=== PATIENT | female | born 1975 | race Caucasian/White ===

== ENCOUNTER 2018-05-06 07:21 | Emergency (ER) | payer SELFPAY ==
[2018-05-06] MEDS ORDERED: Ketorolac Tromethamine 30 MG/ML VIAL ONE (07:45)
[2018-05-06] MEDS ORDERED: Ibuprofen 200 MG TAB ONE (07:50)
== END 2018-05-06 08:15 | disposition home or self-care (01) ==
LOC: BURERS 07:21
DX: G44.209 Tension-type headache, unspecified, not intractable (principal); F17.210 Nicotine dependence, cigarettes, uncomplicated
CPT/HCPCS: 99283; J1885